=== PATIENT | female | born 1965 | race Caucasian/White ===

== ENCOUNTER 2017-07-27 08:45 | Day surgery (SDC) | payer MEDICAID ==
[2017-07-27] MEDS ORDERED: LACTATED RINGERS 1,000 ML IV ONE (09:48)
[2017-07-27] MEDS ORDERED: MIDAZOLAM 2 MG/2 ML VIAL IVP ONE (10:45)
[2017-07-27] MEDS ORDERED: fentaNYL 250 MCG/5 ML VIAL IVP ONE (10:45)
[2017-07-27 11:48] VITALS: BP 105/62
== END 2017-07-27 08:46 | disposition home or self-care (01) ==
LOC: SDS 08:45
PROVIDERS: ATTEND Surgery
PROC: 0DBN8ZX Excision of Sigmoid Colon, Via Natural or Artificial Opening Endoscopic, Diagnostic (ICD-10-PCS; 2017-07-27)
PROC: 0DBP8ZX Excision of Rectum, Via Natural or Artificial Opening Endoscopic, Diagnostic (ICD-10-PCS; principal; 2017-07-27 10:00)
DX: Z12.11 Encounter for screening for malignant neoplasm of colon (principal); K63.5 Polyp of colon; K57.30 Diverticulosis of large intestine without perforation or abscess without bleeding; K62.1 Rectal polyp; K64.8 Other hemorrhoids; F17.210 Nicotine dependence, cigarettes, uncomplicated
CPT/HCPCS: 45380; J3010; J7120; 88305

== ENCOUNTER 2018-11-04 14:28 | Outpatient (CLI) | payer MEDICAID | END 2018-11-04 14:29 | disposition home or self-care (01) | LOC: LAB.S 14:28 | PROVIDERS: ATTEND Family Medicine | DX: M10.9 Gout, unspecified (principal); Z83.3 Family history of diabetes mellitus; Z01.419 Encounter for gynecological examination (general) (routine) without abnormal findings ==

== ENCOUNTER 2018-11-05 10:27 | Outpatient (CLI) | payer MEDICAID ==
[2018-11-05 17:33] LABS: HGB - HEMOGLOBIN 14.4 g/dL (12.0-16.0); MEAN CORPUSCULAR HEMOGLOBIN 32.1 pg (27.0-31.0); MEAN CORPUSCULAR HGB CONC 33.3 g/dL (32.0-36.0); MEAN CORPUSCULAR VOLUME 96.4 fL (81.0-99.0); MEAN PLATELET VOLUME 11.4 fL (7.9-10.8); RED BLOOD COUNT 4.49 10^6/uL (4.20-5.40); RED CELL DISTRIBUTION WIDTH 12.4 % (12.0-15.0); WHITE BLOOD COUNT 8.8 x10^3/uL (4.8-10.8)
[2018-11-05 17:59] LABS: ALBUMIN 4.3 g/dL (3.2-5.5); ALBUMIN/GLOBULIN RATIO 1.4 (1.0-2.2); ALKALINE PHOSPHATASE 64 IU/L (42-121); ALT ALANINE AMINOTRANSFERASE 29 IU/L (10-60); AST ASPARTATE AMINOTRANSFERASE 29 IU/L (10-42); BILIRUBIN,TOTAL 0.8 mg/dL (0.2-1.0); BUN - BLOOD UREA NITROGEN 16 mg/dL (6-20); CALCIUM 9.4 mg/dL (8.5-10.3); CARBON DIOXIDE - CO2 28 mmol/L (21-32); CHLORIDE 105 mmol/L (101-111); CHOL/HDL RATIO 2.8 (<4.4); CHOLESTEROL 198 mg/dL; CREATININE 0.6 mg/dL (0.4-1.0); GFR - MDRD 104 (>89); GLUCOSE 96 mg/dL (70-100); HDL CHOLESTEROL 71 mg/dL; LDL CHOLESTEROL,CALCULATED 107 mg/dL; LDL/HDL RATIO 1.5 (<4.4); SODIUM 142 mmol/L (135-145); TOTAL PROTEIN 7.3 g/dL (6.7-8.2); VLDL CHOLESTEROL 20 mg/dL
[2018-11-05 18:02] LABS: CRP - C-REACTIVE PROTEIN < 1.0 mg/dL (0-1.0)
[2018-11-05 18:17] LABS: HB2 TOTAL 14.8 g/dL; HEMOGLOBIN A1C 0.53 g/dL; HEMOGLOBIN A1C % 5.4 % (4.6-6.2)
[2018-11-05 19:38] LABS: RHEUMATOID FACTOR NEGATIVE (Negative)
[2018-11-06 11:40] LABS: HEPATITIS C ANTIBODY NON-REACTIVE (NON-REACTIVE)
[2018-11-08 16:37] LABS: HIV AG/AB 4TH GEN NON-REACTIVE (NON-REACTIVE)
== END 2018-11-05 10:28 | disposition home or self-care (01) ==
LOC: LAB.S 10:27
PROVIDERS: ATTEND Family Medicine
DX: M10.9 Gout, unspecified (principal); Z01.419 Encounter for gynecological examination (general) (routine) without abnormal findings; Z83.3 Family history of diabetes mellitus
CPT/HCPCS: 36415; 80053; 80061; 81599; 83036; 83721; 85027; 85651; 86038; 86140; 86430; 86803; 87389

== ENCOUNTER 2018-11-15 12:47 | Outpatient (CLI) | payer MEDICAID | END 2018-11-15 12:48 | disposition home or self-care (01) | LOC: RT 12:47 | PROVIDERS: ATTEND Physician Assistant Medical | DX: Z82.49 Family history of ischemic heart disease and other diseases of the circulatory system (principal) | CPT/HCPCS: 93005 ==

== ENCOUNTER 2020-05-28 17:09 | Outpatient (CLI) | payer MEDICAID | END 2020-05-28 17:10 | disposition home or self-care (01) | LOC: COV 17:09 | PROVIDERS: ATTEND Family Medicine | DX: R06.02 Shortness of breath (principal); R09.81 Nasal congestion; J34.89 Other specified disorders of nose and nasal sinuses; Z20.822 Contact with and (suspected) exposure to COVID-19 ==

== ENCOUNTER 2020-10-04 16:23 | Outpatient (CLI) | payer MEDICAID | END 2020-10-04 16:24 | disposition home or self-care (01) | LOC: COV 16:23 | PROVIDERS: ATTEND Family Medicine | DX: R05 Cough (principal); R06.02 Shortness of breath; R07.0 Pain in throat; R09.81 Nasal congestion; J34.89 Other specified disorders of nose and nasal sinuses; Z20.822 Contact with and (suspected) exposure to COVID-19 ==

== ENCOUNTER 2020-12-12 16:42 | Outpatient (CLI) | payer MEDICAID ==
--- NOTE | 2020-12-14 15:50 | Ultrasound Report ---
PROCEDURE: Retroperitoneal INDICATIONS: RIGHT FLANK PAIN TECHNIQUE: Real-time scanning was performed of the retroperitoneal organs, with image documentation. COMPARISON: None. FINDINGS: Kidneys: Kidneys are normal in size. Right kidney measures 11.8 cm long; left kidney measures 10.4 cm long. Right renal cortical thickness is 1.0 cm; left renal cortical thickness is 1.1 cm. No mercedes d masses or nephrolithiasis. Mild pelvocaliectasisis noted on the right. Bladder. Prevoid volume 6 74 cc, post void residual 15 cc. No luminal masses. Bilateral ureteral jets are identified. IMPRESSION: 1. Mild pelvocaliectasis is noted on the right. No source of obstruction is identified. Reviewed by: Loreto Amaya MD on 12/14/2020 3:49 PM PDT Approved by: Loreto Amaya MD on 12/14/2020 3:49 PM PDT Station ID: [id number]
== END 2020-12-12 16:43 | disposition home or self-care (01) ==
LOC: DI 16:42
PROVIDERS: ATTEND Registered Nurse
DX: R10.9 Unspecified abdominal pain (principal); N28.89 Other specified disorders of kidney and ureter

== ENCOUNTER 2020-12-18 10:44 | Outpatient (CLI) | payer MEDICAID ==
[2020-12-18 14:22] LABS: BASOPHILS # (AUTO) 0.1 10^3/uL (0.0-0.1); BASOPHILS % (AUTO) 0.7 %; EOSINOPHILS # (AUTO) 0.2 10^3/uL (0.0-0.7); EOSINOPHILS % (AUTO) 1.9 %; HGB - HEMOGLOBIN 14.6 g/dL (12.0-16.0); LYMPHOCYTES # (AUTO) 1.8 10^3/uL (1.5-3.5); LYMPHOCYTES % (AUTO) 22.3 %; MEAN CORPUSCULAR HEMOGLOBIN 31.7 pg (27.0-31.0); MEAN CORPUSCULAR HGB CONC 33.2 g/dL (32.0-36.0); MEAN CORPUSCULAR VOLUME 95.4 fL (81.0-99.0); MEAN PLATELET VOLUME 11.7 fL (7.9-10.8); MONOCYTES # (AUTO) 0.4 10^3/uL (0.0-1.0); MONOCYTES % (AUTO) 4.9 %; NEUTROPHILS # (AUTO) 5.8 10^3/uL (1.5-6.6); NEUTROPHILS % (AUTO) 69.8 %; PLT - PLATELET COUNT 207 10^3/uL (130-450); RED BLOOD COUNT 4.61 10^6/uL (4.20-5.40); RED CELL DISTRIBUTION WIDTH 12.5 % (12.0-15.0); WHITE BLOOD COUNT 8.2 x10^3/uL (4.8-10.8)
[2020-12-18 14:51] LABS: ALBUMIN 4.4 g/dL (3.2-5.5); ALBUMIN/GLOBULIN RATIO 1.6 (1.0-2.2); ALKALINE PHOSPHATASE 74 IU/L (42-121); ALT ALANINE AMINOTRANSFERASE 35 IU/L (10-60); AST ASPARTATE AMINOTRANSFERASE 36 IU/L (10-42); BILIRUBIN,TOTAL 0.8 mg/dL (0.2-1.0); BUN - BLOOD UREA NITROGEN 14 mg/dL (6-20); CALCIUM 9.2 mg/dL (8.5-10.3); CARBON DIOXIDE - CO2 28 mmol/L (21-32); CHLORIDE 101 mmol/L (101-111); CHOL/HDL RATIO 3.6 (<4.4); CHOLESTEROL 263 mg/dL; CREATININE 0.7 mg/dL (0.4-1.0); GFR - MDRD 86 (>89); GLUCOSE 103 mg/dL (70-100); HDL CHOLESTEROL 73 mg/dL; LDL CHOLESTEROL,CALCULATED 157 mg/dL; LDL/HDL RATIO 2.2 (<4.4); POTASSIUM 3.9 mmol/L (3.5-5.0); SODIUM 138 mmol/L (135-145); TOTAL PROTEIN 7.2 g/dL (6.7-8.2); TRIGLYCERIDES 167 mg/dL; URIC ACID 8.8 mg/dL (2.6-7.2); VLDL CHOLESTEROL 33 mg/dL
[2020-12-18 14:58] LABS: THYROID STIMULATING HORMONE 1.43 uIU/mL (0.34-5.60)
[2020-12-18 15:20] LABS: BILIRUBIN,URINE NEGATIVE (NEGATIVE); GLUCOSE, URINE (UA) NEGATIVE (NEGATIVE); KETONES,URINE (UA) NEGATIVE (NEGATIVE); LEUKOCYTE ESTERASE, URINE NEGATIVE (NEGATIVE); NITRITE,URINE NEGATIVE (NEGATIVE); OCCULT BLOOD,URINE TRACE-INTA (NEGATIVE); PH,URINE 5.5 PH (5.0-7.5); PROTEIN,URINE NEGATIVE (NEGATIVE); UROBILINOGEN,URINE 0.2 (NORMAL) E.U./dL (NORMAL)
[2020-12-18 15:21] LABS: CLARITY,URINE CLOUDY (CLEAR)
[2020-12-18 15:45] LABS: AMORPHOUS SEDIMENT,UR Marked /LPF; BACTERIA,URINE Rare /HPF (None Seen); RBC,URINE 0-5 /HPF (0-5); SQUAMOUS EPITHELIAL CELL,UR RARE Squamous (<= Few); WBC,URINE 0-3 /HPF (0-5)
== END 2020-12-18 10:45 | disposition home or self-care (01) ==
LOC: LAB.S 10:44
PROVIDERS: ATTEND Registered Nurse
DX: R10.9 Unspecified abdominal pain (principal); M10.9 Gout, unspecified; Z13.228 Encounter for screening for other metabolic disorders; Z13.220 Encounter for screening for lipoid disorders; Z13.29 Encounter for screening for other suspected endocrine disorder; Z13.0 Encounter for screening for diseases of the blood and blood-forming organs and certain disorders involving the immune mechanism
CPT/HCPCS: 36415; 80053; 80061; 81001; 83721; 84443; 84550; 85025; 87086

== ENCOUNTER 2021-01-08 07:33 | Outpatient (CLI) | payer MEDICAID ==
[2021-01-08 15:41] LABS: BILIRUBIN,URINE NEGATIVE (NEGATIVE); GLUCOSE, URINE (UA) NEGATIVE (NEGATIVE); KETONES,URINE (UA) NEGATIVE (NEGATIVE); LEUKOCYTE ESTERASE, URINE NEGATIVE (NEGATIVE); NITRITE,URINE NEGATIVE (NEGATIVE); OCCULT BLOOD,URINE TRACE-INTA (NEGATIVE); PROTEIN,URINE NEGATIVE (NEGATIVE); UROBILINOGEN,URINE 0.2 (NORMAL) E.U./dL (NORMAL)
[2021-01-08 15:58] LABS: CLARITY,URINE CLOUDY (CLEAR)
[2021-01-08 16:04] LABS: AMORPHOUS SEDIMENT,UR Marked /LPF; BACTERIA,URINE None Seen /HPF (None Seen); RBC,URINE 0-5 /HPF (0-5); SQUAMOUS EPITHELIAL CELL,UR NONE SEEN (<= Few); WBC,URINE 0-3 /HPF (0-5)
== END 2021-01-08 23:59 | disposition home or self-care (01) ==
LOC: LAB.S 07:33
PROVIDERS: ATTEND Emergency Medicine
DX: R31.0 Gross hematuria (principal); R10.9 Unspecified abdominal pain
CPT/HCPCS: 81001; 87086

== ENCOUNTER 2021-01-12 11:59 | Outpatient (CLI) | payer MEDICAID ==
--- NOTE | 2021-01-12 12:45 | CT Report ---
PROCEDURE: Abdomen/Pelvis WO INDICATIONS: FLANK PAIN. Abdominal trauma, gross hematuria TECHNIQUE: Noncontrast 5 mm thick sections acquired from the diaphragms to the symphysis. 5 mm coronal and sagi ttal reformats were then performed. For radiation dose reduction, the following was used: automated exposure control, adjustment of mA and/or kV according to patient size. COMPARISON: Correlation is made with retroperitoneal ultrasound, 12/12/2020. FINDINGS: Image quality: Excellent. ABDOMEN: Lung bases: Lung bases are clear. Heart size is normal. Solid organs: Liver and spleen are normal in size. Dense calcification can be seen involving the rig ht liver dome, as on series 3 image 9, measuring 9 mm, with an additional calcified focus seen more i nferiorly on series 3 image 23 measuring 4 mm. These foci are considered to be benign. Gallbladder w all does not appear thickened. Pancreas is normal in contours. No adrenal nodules. Kidneys are n ormal in size, without hydronephrosis or nephrolithiasis. Peritoneum and bowel: Unenhanced bowel loops demonstrate normal wall thickness and caliber. No free fluid or air. A normal appendix is incidentally noted. Diverticulosis can be seen, without true f indings of active diverticulitis. Nodes and vessels: No retroperitoneal or mesenteric adenopathy by size criteria. Aorta and inferior vena cava are normal in caliber. Miscellaneous: A mild fat-containing periumbilical hernia is seen. PELVIS: Genitourinary: Bladder wall thickness is normal. An IUD is seen at the expected location. Miscellaneous: No inguinal hernias or adenopathy. Bones: No suspicious bony lesions. No acute vertebral body compression fractures. Focal T10-T11 an d L4-L5 degenerative change can be seen. Mild L4-L5 anterolisthesis is seen, without associated pars defects. Mild anterior wedge deformities can be seen at T12, L1, and L2, without acute features. IMPRESSION: A cause of gross hematuria is not identified. Negative for kidney stones or obstructive uropathy. In this patient with a presenting history of hematuria, please consider a follow-up dedicated hematur ia protocol CT for further evaluation. Incidental note is made of: Benign-appearing liver calcifications Mild fat-containing periumbilical hernia Sigmoid diverticulosis, without findings of active diverticulitis Remote thoracolumbar junction anterior wedge deformities Focal T10-11 and L4-L5 degenerative change IUD Reviewed by: Roman Madera MD on 01/12/2021 11:43 AM [place] Approved by: Roman Madera MD on 01/12/2021 11:43 AM [facility] Station ID: [id number]
== END 2021-01-12 12:00 | disposition home or self-care (01) ==
LOC: DI 11:59
PROVIDERS: ATTEND Emergency Medicine
DX: R10.9 Unspecified abdominal pain (principal); R31.0 Gross hematuria

== ENCOUNTER 2021-01-13 12:31 | Outpatient (CLI) | payer MEDICAID ==
--- NOTE | 2021-01-14 09:33 | Mammography Report ---
BILATERAL DIGITAL SCREENING MAMMOGRAM 3D/2D WITH EXAGGERATED CC: 01/13/2021 CLINICAL: Routine screening. Comparison is made to exams dated: 01/18/2015 mammogram, 08/15/2013 mammogram, 11/15/2010 mammogram, mammogram, 03/15/2008 mammogram, and 02/24/2007 mammogram - [facility]. There are scattered fibroglandular elements in both breasts. There is a new 0.6 cm irregular equal density asymmetry in the right breast at 12 o'clock middle dept h. No other significant masses, calcifications, or other findings are seen in either breast. IMPRESSION: INCOMPLETE: NEEDS ADDITIONAL IMAGING EVALUATION The new 0.6 cm irregular equal density asymmetry in the right breast is indeterminate. Additional vi ews with possible ultrasound are recommended. This exam was interpreted at Station ID: [id number]. NOTE: For mammograms, a report in lay terms will be sent to the patient. Approximately 15% of breast malignancies will not be visualized mammographically. In the management of a palpable breast mass, a negative mammogram must not discourage biopsy of a clinically suspicious lesion. Electronically Signed By: Antione Srivastava M.D. aty/:01/14/2021 07:20:38 ACR BI-RADS Category 0: Incomplete 3340F PARENCHYMAL PATTERN: (A) - The breast(s) demonstrate(s) scattered fibroglandular densities. BI-RADS CATEGORY: (0) - 0 Mammo and [place] [id number] Immediate follow-up LATERALITY: (R)
== END 2021-01-13 12:32 | disposition home or self-care (01) ==
LOC: DI.S 12:31
PROVIDERS: ATTEND Registered Nurse
DX: Z12.31 Encounter for screening mammogram for malignant neoplasm of breast (principal); R92.8 Other abnormal and inconclusive findings on diagnostic imaging of breast

== ENCOUNTER 2021-02-13 09:49 | Outpatient (CLI) | payer MEDICAID ==
--- NOTE | 2021-02-14 12:05 | Ultrasound Report ---
LIMITED ULTRASOUND OF RIGHT BREAST AND AXILLA: 02/13/2021 CLINICAL: Patient returns today to evaluate a focal asymmetry in the right breast. Comparison is made to exams dated: 02/13/2021 mammogram, 01/13/2021 mammogram, and 01/18/2015 mammogr [facility]. Color flow and real-time ultrasound of the right breast 12 o'clock, and axilla regions were performed . Mederos scale images of the real-time examination were reviewed. There is a 0.4 cm x 0.6 cm x 0.4 cm irregular mass with a microlobulated margin in the right breast a t 12 o'clock middle depth 9 cm from the nipple. This irregular mass is hypoechoic. This correlates with mammography findings. Color flow imaging demonstrates that there is no increase in vascularity. No significant abnormalities were seen sonographically in the right axilla. IMPRESSION: SUSPICIOUS OF MALIGNANCY The 0.4 cm x 0.6 cm x 0.4 cm irregular mass in the right breast is suspicious of malignancy. An ultr asound guided biopsy is recommended. The findings and recommendations were discussed with the sigifredo torrez via telephone at the time of the exam. This exam was interpreted at Station ID: [id number]. Electronically Signed By: Dave cueva/evan:02/13/2021 11:16:32 Ultrasound BI-RADS: 4 Suspicious for malignancy BI-RADS CATEGORY: (4) - 4 None [id number] Immediate follow-up LATERALITY: ()
--- NOTE | 2021-02-14 12:05 | Mammography Report ---
UNILATERAL RIGHT DIGITAL DIAGNOSTIC MAMMOGRAM 3D/2D: 02/13/2021 CLINICAL: Patient returns today to evaluate a focal asymmetry in the right breast. Comparison is made to exams dated: 01/13/2021 mammogram and 01/18/2015 mammogram - [facility]. There are scattered fibroglandular elements in right breast. There is a 0.6 cm irregular equal density focal asymmetry in the right breast at 12 o'clock middle de pth. This is seen in additional views. No other significant masses or calcifications are seen in the breast. IMPRESSION: INCOMPLETE: NEEDS ADDITIONAL IMAGING EVALUATION The 0.6 cm irregular equal density focal asymmetry in the right breast at 12 o'clock middle depth is indeterminate. Targeted ultrasound is recommended for further evaluation, which will be performed im mediately following this exam. This exam was interpreted at Station ID: [id number]. NOTE: For mammograms, a report in lay terms will be sent to the patient. Approximately 15% of breast malignancies will not be visualized mammographically. In the management of a palpable breast mass, a negative mammogram must not discourage biopsy of a clinically suspicious lesion. Electronically Signed By: Dave Ritter M.D. ar/:02/13/2021 11:13:55 ACR BI-RADS Category 0: Incomplete 3340F PARENCHYMAL PATTERN: (A) - The breast(s) demonstrate(s) scattered fibroglandular densities. BI-RADS CATEGORY: (0) - 0 Ultrasound [id number] Immediate follow-up LATERALITY: (R)
== END 2021-02-13 09:50 | disposition home or self-care (01) ==
LOC: DI 09:49
PROVIDERS: ATTEND Registered Nurse
DX: R92.8 Other abnormal and inconclusive findings on diagnostic imaging of breast (principal)

== ENCOUNTER 2021-02-21 13:48 | Outpatient (CLI) | payer MEDICAID ==
[2021-02-21] MEDS ORDERED: lidocaine 1% 20 ML MDV ONE (13:56)
[2021-02-21] MEDS ORDERED: LIDOCAINE 1%-EPI 1:100000 20 ML MDV ONE (13:57)
[2021-02-21] MEDS ORDERED: LIDOCAINE 1%-EPI 1:100000 20 ML MDV SUBQ ONE (15:16)
[2021-02-21] MEDS ORDERED: lidocaine 1% 20 ML MDV SUBQ ONE (15:19)
--- NOTE | 2021-02-22 07:46 | Mammography Report ---
UNILATERAL RIGHT DIGITAL DIAGNOSTIC MAMMOGRAM 3D/2D: 02/21/2021 CLINICAL: Post right breast ultrasound biopsy clip placement imaging. Comparison is made to exams dated: 02/13/2021 ultrasound, 02/13/2021 mammogram, 01/13/2021 mammogram , 01/18/2015 mammogram, 08/15/2013 mammogram, and 11/15/2010 mammogram - [facility]. There are scattered fibroglandular elements in right breast. There is a marker clip in the appropriate position in the right breast at 12 o'clock middle depth. T his marker clip placement is at the biopsy site. IMPRESSION: POST PROCEDURE MAMMOGRAM FOR MARKER PLACEMENT There was a successful marker clip placement in the right breast middle depth. This exam was interpreted at Station ID: [id number]. NOTE: For mammograms, a report in lay terms will be sent to the patient. Approximately 15% of breast malignancies will not be visualized mammographically. In the management of a palpable breast mass, a negative mammogram must not discourage biopsy of a clinically suspicious lesion. Electronically Signed By: Jose John acr/:02/21/2021 17:11:52 ACR BI-RADS Category Post-procedure mammogram for marker placement PARENCHYMAL PATTERN: (A) - The breast(s) demonstrate(s) scattered fibroglandular densities. BI-RADS CATEGORY: () - Unspecified - other recall n/a LATERALITY: (B)
--- NOTE | 2021-02-25 12:19 | Ultrasound Report ---
ULTRASOUND GUIDED BIOPSY RIGHT BREAST USING VACUUM DEVICE WITH MARKING DEVICE INSERTED: 02/21/2021 CLINICAL: Right breast mass. PATIENT CONSENT: Risks (minor bleeding, infection, vasovagal reaction and repeat procedure), benefits and alternatives were explained to the patient and written informed consent was obtained. Correlation is made to exams dated: 02/21/2021 mammogram, 02/13/2021 ultrasound, 02/13/2021 mammogram, 01/13/2021 mammogram, 01/18/2015 mammogram, and 08/15/2013 mammogram - [facility]. An ultrasound guided biopsy using real-time ultrasound was performed for the 0.4 cm x 0.6 cm x 0.4 cm circumscribed oval mass located in the right breast at 12 o'clock middle depth 9 cm from the nipple. The skin was prepped in the usual manner. Local anesthetic was administered to the access site. T he abnormality was approached from the lateral aspect. A 13 gauge biopsy needle was placed adjacent to the abnormality under ultrasound guidance. Once the needle was documented to be in the correct lo cation, five specimens were obtained using the Mammotome biopsy system. A clip was inserted into the biopsy cavity. Post procedure mammographic imaging demonstrates the location device at the targeted area. The specimens were sent to the laboratory for pathological analysis. IMPRESSION: ULTRASOUND GUIDED BIOPSY MALIGNANT Ultrasound guided biopsy of the 0.4 cm x 0.6 cm x 0.4 cm mass in the right breast at 12 o'clock middl e depth 9 cm from the nipple was successful. 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 Pathol ogy results are concordant with imaging findings. A surgical/oncologic consultation is recommended. This exam was interpreted at Station ID: [id number]. Jose Ritter M.D. acr,ar/:02/25/2021 09:55:06 BI-RADS CATEGORY: () - Unspecified - other recall n/a LATERALITY: (B)
== END 2021-02-21 13:49 | disposition home or self-care (01) ==
LOC: DI 13:48
PROVIDERS: ATTEND Registered Nurse
DX: C50.811 Malignant neoplasm of overlapping sites of right female breast (principal); Z17.0 Estrogen receptor positive status [ER+]
CPT/HCPCS: 19083; 88305; 88341; 88342; 88360

== ENCOUNTER 2021-03-07 15:11 | Outpatient (CLI) | payer MEDICAID | END 2021-03-07 15:12 | disposition home or self-care (01) | LOC: LAB 15:11 | PROVIDERS: ATTEND Obstetrics & Gynecology | DX: N93.9 Abnormal uterine and vaginal bleeding, unspecified (principal) | CPT/HCPCS: 36415; 81599; 83520 ==

== ENCOUNTER 2021-08-12 07:55 | Day surgery (SDC) | payer MEDICAID ==
[2021-08-12] MEDS ORDERED: CEFAZOLIN SODIUM IN 0.9 % NACL 2 GM/50 ML BAG IV ONE (08:16)
[2021-08-12] MEDS ORDERED: lidocaine 1% 20 ML MDV ONE (08:48)
[2021-08-12] MEDS ORDERED: BUPIVACAINE 0.25% PF 10 ML VIAL ONE (10:31)
[2021-08-12] MEDS ORDERED: LIDOCAINE 2%-EPI 1:100000 20 ML MDV ONE (10:31)
--- NOTE | 2021-08-12 11:33 | ANESTHESIA ---
Pre-Anesthesia VS, & Labs - Diagnosis R breast cancer - Procedure R lumpectomy Vital Signs: Temp Pulse Resp BP Pulse Ox 36.5 C 60 12 144/81 H 100 08/12/21 08:17 08/12/21 08:17 08/12/21 08:17 08/12/21 08:17 08/12/21 08:17 Height: 5 ft 5 in Weight (kg): 60 kg Body Mass Index: 22.0 BMI Classification: Healthy weight - NPO >8 hours - Is Patient ?: No - Lab Results Lab results reviewed: Yes Home Medications and Allergies No Known Home Medications 07/27/17 Allergies/Adverse Reactions: Allergies Allergy/AdvReac Type Severity Reaction Status Date / Time No Known Drug Allergies Allergy Verified 07/27/17 09:49 Anes History & Medical History - Anesthetic History Anesthesia Complications: reports: No previous complications Family history of Anesthesia Complications: Denies Family history of Malignant Hyperthermia: Denies - Medical History Cardiovascular: reports: None Pulmonary: reports: None Gastrointestinal: reports: None Urinary: reports: None Musculoskeletal: reports: Chronic back pain Endocrine/Autoimmune: reports: None Skin: reports: None Smoking Status: Current every day smoker History of Cancer?: Yes (r breast) - Surgical History General: reports: Appendectomy, Colonoscopy Orthopedic: reports: Other Exam General: Alert, Oriented x3, Cooperative Dental: WNL Mouth Openin Fingerbreadth Neck Mobility: Normal Mallampati classification: II Thyromental Distance: 4-6 cm Respiratory: Lungs clear, Normal breath sounds, No respiratory distress Cardiovascular: Regular rate Neurological: Normal speech Mental/Cognitive Status: Alert/Oriented X3, Normal for patient Cognitive Status: Within normal limits Plan Anesthesia Type: General Regional Block: Per Surgeon's request for Post Op pain control Consent for Procedure(s) Verified and Reviewed: Yes Code Status: Do Not Attempt Resuscitation ASA classification: 3-Severe systemic disease Is this case an emergency?: No
[2021-08-12] MEDS ORDERED: MORPHINE 2 MG/ML CARPUJECT IVP PRN (11:34)
[2021-08-12] MEDS ORDERED: fentaNYL 100 MCG/2 ML VIAL IVP PRN (11:34)
[2021-08-12] MEDS ORDERED: ONDANSETRON 4 MG/2 ML VIAL IVP PRN ×2 (11:34→13:09)
[2021-08-12] MEDS ORDERED: ATROPINE ABBOJECT 1 MG/10 ML SYRINGE IVP PRN (11:34)
[2021-08-12] MEDS ORDERED: METOCLOPRAMIDE 10 MG/2 ML VIAL IVP PRN (11:34)
[2021-08-12] MEDS ORDERED: METHYLENE BLUE 0.5% 50 MG/10 ML AMPULE ONE (11:34)
[2021-08-12] MEDS ORDERED: HYDROmorphone 0.5 MG/0.5 ML SYRINGE IVP PRN (11:34)
[2021-08-12] MEDS ORDERED: NALOXONE 0.4 MG/ML VIAL IVP PRN (11:34)
[2021-08-12] MEDS ORDERED: ePHEDrine 50 MG/ML VIAL IVP PRN (11:34)
[2021-08-12] MEDS ORDERED: PROPOFOL 200 MG/20 ML VIAL IVP ONE (11:49)
[2021-08-12] MEDS ORDERED: fentaNYL 100 MCG/2 ML VIAL ONE (11:49)
[2021-08-12] MEDS ORDERED: MIDAZOLAM 2 MG/2 ML VIAL ONE (11:49)
[2021-08-12] MEDS ORDERED: LIDOCAINE-MPF 2% 5 ML VIAL ONE (11:49)
[2021-08-12] MEDS ORDERED: GLYCOPYRROLATE 1 MG/5 ML VIAL ONE (11:59)
[2021-08-12] MEDS ORDERED: LACTATED RINGERS 1,000 ML IV SCH (12:00)
[2021-08-12] MEDS ORDERED: BUPIVACAINE 0.5% PF 30 ML VIAL SUBQ ONE ×2 (12:40)
[2021-08-12] MEDS ORDERED: LIDOCAINE 1%-EPI 1:100000 30 ML MDV SUBQ ONE ×2 (12:40)
[2021-08-12] MEDS ORDERED: METHYLENE BLUE 0.5% 50 MG/10 ML AMPULE IR ONE (12:41)
[2021-08-12] MEDS ORDERED: ONDANSETRON 4 MG/2 ML VIAL ONE (12:58)
[2021-08-12] MEDS ORDERED: DEXAMETHASONE 4 MG/ML VIAL ONE (12:58)
[2021-08-12] MEDS ORDERED: KETOROLAC 30 MG/ML VIAL ONE (12:58)
[2021-08-12] MEDS ORDERED: oxyCODONE 5 MG TABLET PO PRN (13:09)
[2021-08-12] MEDS ORDERED: IBUPROFEN 600 MG TABLET PO PRN (13:09)
[2021-08-12] MEDS ORDERED: ACETAMINOPHEN 325 MG TABLET PO PRN (13:09)
--- NOTE | 2021-08-12 13:09 | OPERATIVE REPORT ---
Operative Report - General Procedure Date: 08/12/21 Planned Procedure: Right breast lumpectomy and sentinel node biopsy after needle localization Pre-Op Diagnosis: Biopsy-proven right breast cancer Procedure Performed: Right breast lumpectomy and sentinel node biopsy Post Op Diagnosis: Biopsy-proven right breast cancer - Procedure Note Primary Surgeon: Ashley Anesthesia Provider: Saulo Pathology: 1. [place] node - Blue 2. Specimen with wire 3. Additional posterior margin Estimated Blood Loss (mL): 5 Findings: A single sentinel node Anterior margin is the dermis of the skin Complications: None apparent - Other Other Information/Narrative: After obtaining informed consent, the patient was brought to the operating room and placed in the supine position on the operating table. Following successful induction of general endotracheal anesthesia, appropriate padding of all bony prominences, and placement of appropriate monitors, 2 mL of methylene blue blue, undiluted, was injected in the subcutaneous tissue deep to the nipple. The right breast was massaged for approximately 5 minutes. The right breast was prepped and draped in the standard surgical fashion. A timeout was held per scope protocol. All elements of the surgical safety checklist were followed before, during, and after the procedure. We began the procedure with a sentinel node dissection. An incision was created in the right axilla along Elin's lines. This was carried through the skin and subcutaneous tissue into theWe immediately identified a deeply blue sclerae node packet. Node in level 1. This was carefully dissected free from surrounding structures. All lymphatics and vasculature were addressed with hemoclips prior to division. It was liberated and retained as a specimen in formalin. Further examination did not reveal any additional blue nodes. The wound was checked for hemostasis and irrigated with warm saline solution. The axillary incision was then closed in 2 layers with Vicryl and Monocryl sutures. We turned our attention to the right breast mass. The area over the mass and in the periareolar region was infiltrated with a mixture of local anesthetics to create to field block. A periareolar incision was then created and the mass and associated wire carefully dissected sharply from the subcutaneous tissue anteriorly and from the retromammary bursa posteriorly. The mass was removed in a single piece in a medial to lateral fashion. It was marked with a short stitch superior, long stitch lateral, and double stitch anterior. It was finally liberated sharply and delivered into the field. The wound was checked for hemostasis. It was irrigated again with warm water. The specimen xray was examined and found to contain the target clip and lesion well centered. The wound was then closed in 2 layers with Vicryl and Monocryl sutures. All sponge, needle, and instrument counts were correct at the conclusion of the case. The patient was let awakened anesthesia without difficulty and taken to the postanesthesia care unit in good condition.
[2021-08-12] MEDS ORDERED: LACTATED RINGERS 1,000 ML IV ONE (13:11)
[2021-08-12] MEDS ORDERED: HYDROmorphone 0.5 MG/0.5 ML SYRINGE ONE (13:31)
--- NOTE | 2021-08-12 13:36 | ANESTHESIA POST OP EVALUATION ---
Anesthesia Post Eval - Post Anesthesia Eval Vitals: Last Vital Signs Temp 36.5 C 08/12/21 13:30 Pulse 63 08/12/21 13:30 Resp 21 08/12/21 13:30 BP 126/65 08/12/21 13:30 Pulse Ox 99 08/12/21 13:30 CV Function Including HR & BP: Stable Pain Control: Satisfactory Nausea & Vomiting: Negative Mental Status: Baseline Respiratory Status: Airway Patent Hydration Status: Satisfactory Anesthesia Complications: None
[2021-08-12] MEDS ORDERED: lidocaine 1% 20 ML MDV SUBQ ONE (14:03)
[2021-08-12] MEDS ORDERED: oxyCODONE 5 MG TABLET ONE (14:06)
[2021-08-12 15:20] VITALS: BP 114/72
--- NOTE | 2021-08-13 09:03 | Ultrasound Report ---
-- Reviewed by: Liliya Ying MD on 08/13/2021 9:02 AM PDT Approved by: Liliya Ying MD on 08/13/2021 9:02 AM PDT Station ID: [id number]
--- NOTE | 2021-08-13 09:17 | Mammography Report ---
UNILATERAL RIGHT DIGITAL DIAGNOSTIC MAMMOGRAM 3D/2D: 08/12/2021 CLINICAL: Wire placement Right Breast. Comparison is made to exams dated: 02/21/2021 ultrasound biopsy, 02/21/2021 mammogram, 02/13/2021 ultras ound, 02/13/2021 mammogram, and 01/13/2021 mammogram - [facility]. There are scatt ered fibroglandular elements in right breast. There is a localization wire in the appropriate position in the right breast at 12 o'clock posterior depth. IMPRESSION: POST PROCEDURE MAMMOGRAM FOR MARKER PLACEMENT There was a successful localization wire placement in the right breast posterior depth. This exam was interpreted at Station ID: [id number]. NOTE: For mammograms, a report in lay terms will be sent to the patient. Approximately 15% of breast malignancies will not be visualized mammographically. In the management of a palpable breast mass, a negative mammogram must not discourage biopsy of a clinically suspicious lesion. Electronically Signed By: Liliya Ying M.D. lk/:08/12/2021 12:58:44 ACR BI-RADS Category Post-procedure mammogram for marker placement PARENCHYMAL PATTERN: (A) - The breast(s) demonstrate(s) scattered fibroglandular densities. BI-RADS CATEGORY: () - Unspecified - other recall n/a LATERALITY: (B)
== END 2021-08-12 07:56 | disposition home or self-care (01) ==
LOC: DI 07:55
PROVIDERS: ATTEND Surgery
PROC: 07B50ZZ Excision of Right Axillary Lymphatic, Open Approach (ICD-10-PCS; 2021-08-12)
PROC: 0HBT0ZZ Excision of Right Breast, Open Approach (ICD-10-PCS; principal; 2021-08-12 10:30)
DX: D05.11 Intraductal carcinoma in situ of right breast (principal); F17.200 Nicotine dependence, unspecified, uncomplicated
CPT/HCPCS: 19285; 19301; 38525; 77065; A9270; J0690; J1170; J7120

== ENCOUNTER 2022-10-10 10:06 | Outpatient (CLI) | payer MEDICAID ==
--- NOTE | 2022-10-13 11:45 | Mammography Report ---
BILATERAL DIGITAL DIAGNOSTIC MAMMOGRAM 3D/2D WITH SPOT COMPRESSION: 10/10/2022 CLINICAL: Post right lumpectomy follow up. Due for bilateral imaging. Comparison is made to exams dated: 08/12/2021 mammogram, 08/12/2021 localization, 02/21/2021 mammogram, 02/13/2021 mammogram, 01/13/2021 mammogram, and 01/18/2015 mammogram - [facility]. There are scattered areas of fibroglandular density in both breasts (category b / 25%-50% glandular t issue). There are benign post operative findings in the right breast. No significant masses, calcifications, or other findings are seen in either breast. There has been no significant interval change. IMPRESSION: BENIGN There is no mammographic evidence of malignancy. Return to annual mammogram screening schedule is rec ommended. This exam was interpreted at Station ID: [id number]. NOTE: For mammograms, a report in lay terms will be sent to the patient. Approximately 15% of breast malignancies will not be visualized mammographically. In the management of a palpable breast mass, a negative mammogram must not discourage biopsy of a clinically suspicious lesion. Electronically Signed By: Alberto allred/evan:10/10/2022 10:54:02 letter sent: No_Letter ACR BI-RADS Category 2: Benign Finding(s) 3342F PARENCHYMAL PATTERN: (A) - The breast(s) demonstrate(s) scattered fibroglandular densities. BI-RADS CATEGORY: (2) - 2 Mammogram [id number] return to screening LATERALITY: (B)
== END 2022-10-10 10:07 | disposition home or self-care (01) ==
LOC: DI 10:06
PROVIDERS: ATTEND Internal Medicine Hematology & Oncology
DX: C50.911 Malignant neoplasm of unspecified site of right female breast (principal)

== ENCOUNTER 2023-01-07 08:00 | Outpatient (CLI) | payer MEDICAID | END 2023-01-07 23:59 | disposition home or self-care (01) | LOC: LAB.N 08:00 | PROVIDERS: ATTEND Registered Nurse | DX: R30.0 Dysuria (principal) | CPT/HCPCS: 87077; 87086; 87181 ==

== ENCOUNTER 2023-01-21 07:49 | Outpatient (CLI) | payer MEDICAID ==
[2023-01-21 14:48] LABS: BASOPHILS # (AUTO) 0.1 10^3/uL (0.0-0.1); BASOPHILS % (AUTO) 1.4 %; EOSINOPHILS # (AUTO) 0.3 10^3/uL (0.0-0.7); EOSINOPHILS % (AUTO) 4.9 %; HCT - HEMATOCRIT 44.4 % (37.0-47.0); HGB - HEMOGLOBIN 14.1 g/dL (12.0-16.0); LYMPHOCYTES # (AUTO) 2.1 10^3/uL (1.5-3.5); LYMPHOCYTES % (AUTO) 32.2 %; MEAN CORPUSCULAR HEMOGLOBIN 30.9 pg (27.0-31.0); MEAN CORPUSCULAR HGB CONC 31.8 g/dL (32.0-36.0); MEAN CORPUSCULAR VOLUME 97.2 fL (81.0-99.0); MEAN PLATELET VOLUME 11.5 fL (7.9-10.8); MONOCYTES # (AUTO) 0.5 10^3/uL (0.0-1.0); MONOCYTES % (AUTO) 7.1 %; NEUTROPHILS # (AUTO) 3.5 10^3/uL (1.5-6.6); NEUTROPHILS % (AUTO) 54.1 %; PLT - PLATELET COUNT 223 10^3/uL (130-450); RED BLOOD COUNT 4.57 10^6/uL (4.20-5.40); RED CELL DISTRIBUTION WIDTH 12.4 % (12.0-15.0); WHITE BLOOD COUNT 6.5 x10^3/uL (4.8-10.8)
[2023-01-21 15:17] LABS: THYROID STIMULATING HORMONE 1.97 uIU/mL (0.34-5.60)
[2023-01-21 15:52] LABS: ALBUMIN 4.1 g/dL (3.2-5.5); ALBUMIN/GLOBULIN RATIO 1.8 (1.0-2.2); ALKALINE PHOSPHATASE 70 IU/L (42-121); ALT ALANINE AMINOTRANSFERASE 18 IU/L (10-60); AST ASPARTATE AMINOTRANSFERASE 21 IU/L (10-42); BILIRUBIN,TOTAL 0.4 mg/dL (0.2-1.0); BUN - BLOOD UREA NITROGEN 15 mg/dL (6-20); CALCIUM 9.3 mg/dL (8.5-10.3); CARBON DIOXIDE - CO2 31 mmol/L (21-32); CHLORIDE 104 mmol/L (101-111); CHOL/HDL RATIO 2.9 (<4.4); CHOLESTEROL 215 mg/dL; CREATININE 0.7 mg/dL (0.6-1.3); GFR - MDRD 86 (>89); GLUCOSE 101 mg/dL (74-104); HDL CHOLESTEROL 75 mg/dL; LDL CHOLESTEROL,CALCULATED 99 mg/dL; LDL/HDL RATIO 1.3 (<4.4); POTASSIUM 4.4 mmol/L (3.5-4.5); SODIUM 140 mmol/L (135-145); TOTAL PROTEIN 6.4 g/dL (6.4-8.9); TRIGLYCERIDES 203 mg/dL (48-352); VLDL CHOLESTEROL 41 mg/dL
[2023-01-22 03:10] LABS: HCV AB Non Reactive (Non Reactive)
== END 2023-01-21 07:50 | disposition home or self-care (01) ==
LOC: LAB.S 07:49
PROVIDERS: ATTEND Registered Nurse
DX: Z13.228 Encounter for screening for other metabolic disorders (principal); Z13.220 Encounter for screening for lipoid disorders; Z13.29 Encounter for screening for other suspected endocrine disorder; Z13.0 Encounter for screening for diseases of the blood and blood-forming organs and certain disorders involving the immune mechanism; Z11.59 Encounter for screening for other viral diseases
CPT/HCPCS: 36415; 80053; 80061; 83721; 84443; 85025; 86803

== ENCOUNTER 2023-07-31 07:32 | Outpatient (CLI) | payer MEDICAID ==
[2023-07-31 20:45] LABS: ESTIMATED AVERAGE GLUCOSE 111 mg/dL (70-100); HEMOGLOBIN A1c% 5.5 % (4.27-6.07)
== END 2023-07-31 07:33 | disposition home or self-care (01) ==
LOC: LAB.S 07:32
PROVIDERS: ATTEND Registered Nurse
DX: R73.9 Hyperglycemia, unspecified (principal); Z83.3 Family history of diabetes mellitus
CPT/HCPCS: 36415; 82947; 83036

== ENCOUNTER 2023-10-29 10:17 | Outpatient (CLI) | payer MEDICAID ==
--- NOTE | 2023-10-30 10:47 | Mammography Report ---
BILATERAL DIGITAL SCREENING MAMMOGRAM 3D/2D: 10/29/2023 CLINICAL: Routine screening. Personal history of right breast cancer. Comparison is made to exams dated: 10/10/2022 mammogram, 08/12/2021 mammogram, and 01/13/2021 mammogra m - [facility]. There are scattered areas of fibroglandular density (category b / 25%-50% glandular tissue). There are benign post operative findings in the right breast. No significant masses, calcifications, or other findings are seen in either breast. There has been no significant interval change. IMPRESSION: BENIGN There is no mammographic evidence of malignancy. A 1 year screening mammogram is recommended. This exam was interpreted at Station ID: [id number]. NOTE: For mammograms, a report in lay terms will be sent to the patient. Approximately 15% of breast malignancies will not be visualized mammographically. In the management of a palpable breast mass, a negative mammogram must not discourage biopsy of a clinically suspicious lesion. Electronically Signed By: Antione Srivastava M.D. atjavier/evan:10/29/2023 17:37:32 ACR BI-RADS Category 2: Benign 3342F PARENCHYMAL PATTERN: (A) - The breast(s) demonstrate(s) scattered fibroglandular densities. BI-RADS CATEGORY: (2) - 2 RECOMMENDATION: (ANNUAL) - Recommend routine annual screening mammography. [id number] 1 year screening LATERALITY: (B)
== END 2023-10-29 10:18 | disposition home or self-care (01) ==
LOC: DI.S 10:17
PROVIDERS: ATTEND Internal Medicine Hematology & Oncology
DX: Z12.31 Encounter for screening mammogram for malignant neoplasm of breast (principal); Z85.3 Personal history of malignant neoplasm of breast